=== PATIENT | male | born 1965 | race Caucasian/White ===

== ENCOUNTER 2019-10-26 05:23 | Day surgery (SDC) | payer BC, SELFPAY ==
[2019-08-20 15:05] VITALS: BMI 25.8
[2019-09-21 16:03] VITALS: BMI 25.8
[2019-10-26] VITALS (11 sets, daily range): BP systolic 122–164; BP diastolic 82–97; PULSE 73–93; RESP 16; TEMP 36.6–36.9; O2SAT 96–100; BMI 25.8
--- NOTE | 2019-10-26 06:01 | PCM.HP.STD ---
Problem List (1) Screening for intestinal cancer Status: Acute History of Present Illness Date of Admission: 10/26/19 The patient is a 53 year old M who presents for screening colonoscopy today. He has not had a previous colonoscopy. He denies personal or family history of colon polyps or cancer. He denies bright red blood per rectum or melena. Weight is been stable. He otherwise feels that he enjoys good health. Past Medical History Medical History: Medical History (Last Reviewed 08/20/19 @ 15:03 by Emily Meng) Sebaceous cyst (Acute) L72.3 Allergies No Known Allergies Allergy (Verified 09/21/19 16:03) Home Medications: Ambulatory Orders Medication Instructions Recorded NK 09/14/19 Surgical History: Surgical History (Last Reviewed 08/20/19 @ 15:04 by Emily Meng) History of ankle surgery Z98.890 Smoking Status: Current some day smoker Review of Systems Constitutional: Denies: Anorexia HEENT: Denies: Difficulty Swallowing Cardiovascular: Denies: Chest Pain Respiratory: Denies: Cough Gastrointestinal: Denies: Abdominal Pain, Melena Endocrine: Denies: Change in Body Habitus VTE Information - Inpt Only VTE Present on Admission: No Patient Problems: Active and Suspected Problems (Last Reviewed 08/20/19 @ 15:03 by Emily Meng) Screening for intestinal cancer (Acute) - Physical Exam Vitals/I&O's: Vital Signs Temp Pulse Resp BP Pulse Ox 97.8 F 93 16 151/95 H 100 10/26/19 05:49 10/26/19 05:49 10/26/19 05:49 10/26/19 05:49 10/26/19 05:49 Oxygen Delivery Method Room Air Body Mass Index (BMI) 25.8 General: Alert, Oriented x3, Cooperative, No apparent distress HEENT: Atraumatic Oral: Moist Mucosa Lungs: - - Diminished respiratory excursion. Clear apices Cardiovascular: Regular rate, Regular Rhythm Abdomen: Soft, Non Tender, Non-Distended Extremities: No Calf Tenderness Neurological: - - Cognition intact Psych/Mental Status: Normal Affect Assessment/Plan All Active Problems (Last Reviewed 08/20/19 @ 15:03 by Emily Meng) Screening for intestinal cancer (Acute) Sebaceous cyst (Acute) 53-year-old gentleman who presents for screening colonoscopy with possible biopsy or polypectomy is indicated. I have discussed the technique, benefit, risks, alternatives. He has had an opportunity to ask and have questions answered. He presents via our open access program today. Ubaldo Black M.D., F.A.C.S.
[2019-10-26] MEDS: Lactated Ringers 1,000 ML 100 ML IV (06:10)
--- NOTE | 2019-10-26 06:30 | COLBX_PTH ---
PATIENT: THOM ESPOSITO LOC: EN U#:[id number] AGE/SX: 53/M ROOM: RE10/26/[address]: Dr. Ubaldo Black MD : 1965 BED: DIS: 10/26/2019 SPEC #: [id number] RECD: 10/26/19 11:29 STATUS: COMFORT TEE #: [id number] PAT: 10/26/19 06:[address]: Ubaldo Black DEPT: SURGICAL PATHOLOGY RECD BY: Mely Galvez ENTERED: 10/26/19 11:53 SP TYPE: COLON BX OTHR DR: No Primary Care Phys Tissues: A - Cecum, NOS B - Transverse colon C - Transverse colon D - Transverse colon Procedures: Surgery Specimen Level IV HEADER OPERATION: Colonoscopy (MOD) PRE-OP DIAGNOSIS: Screening colonoscopy TISSUE SUBMITTED: A. Cecal polyp, B. Proximal transverse colon, C. Proximal transverse colon, D. Mid transverse colon polyp MICROSCOPIC DIAGNOSIS A. Cecal polyp, biopsy: Fragments of tubular adenoma. B. Proximal transverse colon polyp, biopsy: Fragments of tubular adenoma. Fragments of fecal material. C. Proximal transverse colon polypoid mucosa, biopsy: Fragments of tubular adenoma. D. Mid transverse colon polyp, biopsy: Fragments of tubular adenoma. RITA:faustino 10/29/19 MICROSCOPIC DESCRIPTION Slides are reviewed. GROSS DESCRIPTION A - Received in fixative is one container labeled with the patient's name and designated cecal polyp. The specimen consists of multiple irregular fragments of light nieves soft tissue that in aggregate measure 1 x 0.5 x 0.1 cm. The specimen is totally submitted in one cassette. B - Received in fixative is one container labeled with the patient's name and designated proximal transverse polyp. The specimen consists of multiple irregular fragments of light nieves soft tissue that in aggregate measure 1 x 0.5 x 0.1 cm. The specimen is totally submitted in one cassette. C - Received in fixative is one container labeled with the patient's name and designated proximal transverse colon polypoid mucosa. The specimen consists of multiple irregular fragments of light nieves soft tissue that in aggregate measure 1 x 0.5 x 0.1 cm. The specimen is totally submitted in one cassette. D - Received in fixative is one container labeled with the patient's name and designated mid transverse colon polyp. The specimen consists of two irregular fragments of light nieves soft tissue that in aggregate measure 0.4 x 0.3 x 0.1 cm. The specimen is totally submitted in one cassette. / RITA:faustino 10/26/19 TC:1 CPT: 98709 x4
--- NOTE | 2019-10-29 14:18 | OP.CCLET_ITS ---
10/29/2019 No Primary Care Physician Re : Colonoscopy procedure for Deirdre Starr [facility] Care Physician This procedure was performed on Saturday, October 26, 2019. My impressions and recommendations are as follows: Impressions : - Anal stricture found on digital rectal exam. - One 8 mm polyp in the cecum, removed with a cold biopsy forceps. Resected and retrieved. - One 9 mm polyp in the proximal transverse colon, removed with a cold snare. Resected and retrieved. - One 6 mm polyp in the proximal transverse colon, removed with a cold biopsy forceps. Resected and retrieved. - One 5 mm polyp in the mid transverse colon, removed with a cold biopsy forceps. Resected and retrieved. Recommendations : - Discharge patient to home. - Resume previous diet. - Continue present medications. - Repeat colonoscopy in 3 years for surveillance based on pathology results. - Telephone my office for pathology results in 1 week. My findings are described in the full procedure note, which is enclosed. If I can be of further assistance, please feel free to contact me at Doctor phone number(s): Work: . Sincerely, Ubaldo Black MD 10/26/2019 6:55:19 AM This report has been signed electronically.
--- NOTE | 2019-10-29 14:18 | OP.COLON_ITS ---
Patient Name: Deirdre Starr Procedure Date: 10/26/2019 6:09 AM Date of : 1965 Age: 53 Procedure: Colonoscopy Indications: Screening for colorectal malignant neoplasm Providers: Ubaldo Black MD Referring MD: Ubaldo Black MD Medicines: Midazolam 4.5 mg IV, Meperidine 100 mg IV Patient Profile: Last Colonoscopy: none. The patient's first colonoscopy is today. Complications: No immediate complications. Procedure: Pre-Anesthesia Assessment: - Prior to the procedure, a History and Physical was performed, and patient medications and allergies were reviewed. The patient's tolerance of previous anesthesia was also reviewed. The risks and benefits of the procedure and the sedation options and risks were discussed with the patient. All questions were answered, and informed consent was obtained. Prior Anticoagulants: The patient has taken no previous anticoagulant or antiplatelet agents. ASA Grade Assessment: II - A patient with mild systemic disease. After reviewing the risks and benefits, the patient was deemed in satisfactory condition to undergo the procedure. After I obtained informed consent, the scope was passed under direct vision. Throughout the procedure, the patient's blood pressure, pulse, and oxygen saturations were monitored continuously. The Colonoscope was introduced through the anus and advanced to the cecum, identified by appendiceal orifice and ileocecal valve. The colonoscopy was performed without difficulty. The patient tolerated the procedure well. The quality of the bowel preparation was good. The ileocecal valve was photographed. Moderate Sedation: Moderate (conscious) sedation was personally administered by the endoscopist. The following parameters were monitored: oxygen saturation, heart rate, blood pressure, and response to care. Total physician intraservice time was 16 minutes. Scope In: 6:33:55 AM Scope Withdrawal Time 0 hours 12 minutes 59 seconds Scope Out: 6:50:07 AM Total Procedure Duration Time 0 hours 16 minutes 12 seconds Findings: The digital rectal exam findings include anal stricture. A 8 mm polyp was found in the cecum. The polyp was sessile. The polyp was removed with a cold biopsy forceps. Resection and retrieval were complete. A 9 mm polyp was found in the proximal transverse colon. The polyp was sessile. The polyp was removed with a cold snare. Resection and retrieval were complete. A 6 mm polyp was found in the proximal transverse colon. The polyp was sessile. The polyp was removed with a cold biopsy forceps. Resection and retrieval were complete. A 5 mm polyp was found in the mid transverse colon. The polyp was sessile. The polyp was removed with a cold biopsy forceps. Resection and retrieval were complete. Impression: - Anal stricture found on digital rectal exam. - One 8 mm polyp in the cecum, removed with a cold biopsy forceps. Resected and retrieved. - One 9 mm polyp in the proximal transverse colon, removed with a cold snare. Resected and retrieved. - One 6 mm polyp in the proximal transverse colon, removed with a cold biopsy forceps. Resected and retrieved. - One 5 mm polyp in the mid transverse colon, removed with a cold biopsy forceps. Resected and retrieved. Recommendation: - Discharge patient to home. - Resume previous diet. - Continue present medications. - Repeat colonoscopy in 3 years for surveillance based on pathology results. - Telephone my office for pathology results in 1 week. Procedure Code(s): --- Professional --- 98093, Colonoscopy, flexible; with removal of tumor(s), polyp(s), or other lesion(s) by snare technique 14195, 59, Colonoscopy, flexible; with biopsy, single or multiple 35511, 59, Moderate sedation services provided by the same physician or other qualified health daycare provider performing the diagnostic or therapeutic service that the sedation supports, requiring the presence of an independent trained observer to assist in the monitoring of the patient's level of consciousness and physiological status; initial 15 minutes of intraservice time, patient age 5 years or older Diagnosis Code(s): --- Professional --- Z12.11, Encounter for screening for malignant neoplasm of colon K62.4, Stenosis of anus and rectum D12.0, Benign neoplasm of cecum D12.3, Benign neoplasm of transverse colon (hepatic flexure or splenic flexure) CPT copyright 2017 [employer]. All rights reserved. The codes documented in this report are preliminary and upon reduction furnace operator review may be revised to meet current compliance requirements. Ubaldo Black MD 10/26/2019 6:55:19 AM This report has been signed electronically. Number of Addenda: 0 Note Initiated On: 10/26/2019 6:09 AM
== END 2019-10-26 07:29 | disposition home or self-care (01) ==
LOC: EN 05:23 → AC 05:25
PROVIDERS: Referring Provider Surgery; Visit Provider Surgery
PROC: 0DJD8ZZ Inspection of Lower Intestinal Tract, Via Natural or Artificial Opening Endoscopic (ICD-10-PCS; CPT 45378; principal; 2019-10-26 06:25)
DX: Z12.11 Encounter for screening for malignant neoplasm of colon (principal); D12.0 Benign neoplasm of cecum; D12.3 Benign neoplasm of transverse colon; K62.4 Stenosis of anus and rectum; F17.200 Nicotine dependence, unspecified, uncomplicated
CPT/HCPCS: 45380; 45385; 88305; 99152; 99153; J7120

== ENCOUNTER → 2022-11-19 | Outpatient (CLI) | payer BC, SELFPAY ==
[2022-11-19 08:26] LABS: Absolute Lymphocyte Count 1.09 X10^3/uL (0.83-4.51); Absolute Neutrophil Count 2.9 X10^3/uL (2.0-7.7); Basophil# 0.04 X10^3/uL; Basophil% 0.8 % (0-1); Eosinophil# 0.17 X10^3/uL; Eosinophils% 3.4 % (0-5); Hemoglobin 15.4 g/dL (13.0-16.5); Lymphocyte # 1.09 X10^3/ul (0.83-4.51); Lymphocyte % 22.1 % (19-41); Mean Corp Hgb Conc 34.2 g/dL (32-36); Mean Corpuscular Hgb 33.2 pg (27.0-32.0); Mean Platelet Vol. 9.7 fl (6.2-12.0); Monocyte% 14.2 % (0-10); NRBC Flagged by Analyzer 0 % (0-5); Neutrophil # 2.92 X10^3/uL (2.7-7.7); Neutrophil % 59.1 % (47-70); Platelet Count 216 K/mm3 (150-450); RBC Distribution Width CV 11.3 % (11.6-14.6); RBC Distribution Width SD 40.5 fl (35.1-43.9); Red Blood Count 4.64 M/mm3 (4.6-6.2); White Blood Count 4.9 K/mm3 (4.4-11.0)
[2022-11-19 08:51] LABS: ALB/GLOB Ratio 1.4 RATIO (0.9-2.4); AST(SGOT) 34 U/L (15-37); Alanine Aminotransfer ALT/SGPT 55 U/L (16-61); Albumin, Serum 4.1 g/dL (3.2-5.0); Alkaline Phosphatase 50 U/L (45-117); Anion Gap 5 (5-15); BUN 9 mg/dL (7-18); BUN/Creat Ratio 9.9 RATIO (10-20); Chloride 100 mmol/L (98-107); Cholesterol 200 mg/dL (200); Creatinine, Serum 0.91 mg/dL (0.70-1.30); EST Glomerular Filtration Rate 91 mL/min (>60); Est Glom Filt Rate - Afr Amer 110 mL/min (>60); Glucose 116 mg/dL (74-106); High Density Lipoprotein 92 mg/dL; PSA,Total - Annual Screen 1.85 ng/mL (0.00-4.00); Potassium 4.6 mmol/L (3.5-5.1); Protein, Total 7.1 g/dL (6.4-8.2); Sodium Level 134 mmol/L (136-145); Triglycerides 49 mg/dL; Very Low Density Lipoprotein 10 mg/dL (5-40)
== END | disposition home or self-care (01) ==
PROVIDERS: PCP Internal Medicine; Visit Provider Internal Medicine
DX: Z00.00 Encounter for general adult medical examination without abnormal findings (principal); Z76.89 Persons encountering health services in other specified circumstances
CPT/HCPCS: 36415; 80053; 80061; 82306; 84153; 85025; G0103

== ENCOUNTER 2022-11-25 06:53 | Outpatient (CLI) | payer BC, SELFPAY ==
[2022-11-25 08:43] LABS: Insulin 9.9 mU/L (2.6-37.6)
== END 2022-11-25 23:59 | disposition home or self-care (01) ==
PROVIDERS: PCP Internal Medicine; Referring Provider Internal Medicine; Visit Provider Internal Medicine
DX: E88.81 Metabolic syndrome and other insulin resistance (principal)
CPT/HCPCS: 36415; 83525

== ENCOUNTER 2023-01-21 06:05 | Day surgery (SDC) | payer BC, SELFPAY ==
[2023-01-21] VITALS (9 sets, daily range): BP systolic 111–170; BP diastolic 84–101; PULSE 71–84; RESP 16–18; TEMP 36.1–37.1; O2SAT 95–100; BMI 26.0
--- NOTE | 2023-01-21 06:09 | HP.PCM_ITS ---
History and Physical Date of Admission: 01/21/23 Allergies No Known Allergies Allergy (Verified 11/05/22 07:46) Medications NK? 09/14/19 [History Confirmed 11/05/22] PFSH Medical History?(Updated 11/05/22 @ 05:[address] Ubaldo Black MD) Back problem Hearing problem Sebaceous cyst Surgical History? H/O colonoscopy History of ankle surgery Family History? Mother Breast cancerSister Thyroid disorderGrandfather Heart diseaseFather CVA (cerebral vascular accident) Social History? adopted:? No household members:? spouse housing:? house number of children:? 2 current occupational status:? 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 Yes leisure activities:? hunting and fishing history of recent travel:? No sexually active:? Yes Smoking Status:? Current some day smoker Smokeless tobacco user:? chewing tobacco how long ago did patient quit smoking:? 2 years ago smoking , occ cigar , usses chewing tabacoo alcohol intake:? current alcohol intake frequency: 0-2 drinks per day details:? 20-30 a week substance use type:? does not use well-balanced diet:? about half the time caffeine:? Yes eating out:? rarely or never during the past year weight has:? increased > 10 lbs what type of physical activity do you participate in:? none melanie/religious:? Restoration seatbelt use:? always do you feel safe at home:? Yes HPI HPI HPI: 56-year-old gentleman has received a recall letter for a colonoscopy.? On October 26, 2019 I performed a colonoscopy as screening for him.? That was performed with moderate conscious sedation.? 4 polyps were removed from the cecum and proximal transverse colon and mid transverse colon.? They were all tubular adenomas.? Bowel preparation at that time was felt to be good.? Follow- up exam in 3 years recommended to the number of polyps identified.? He has no family history of colon cancer.? He has had no abdominal pain or bright red blood per rectum or melena.? He has had a very slight weight increase no unexpected loss.? No history of DVT. ROS General General: No weight change, appetite, fatigue, colon cancer, breast cancer or weakness HEENT HEENT: No difficulty swallowing, eye injury, eye surgery, swollen glands or hoarseness Endo Endocrine: No thyroid disease, diabetes mellitus, thyroid cancer, Hair loss, heat intolerance or cold intolerance Skin Skin: No rash or changing moles Musc Musculoskeletal: No back problems, arthritis, rheumatoid arthritis, gout or joint pain Cardio Cardiovascular: No murmur, pacemaker, heart disease, atrial fibrillation, high blood pressure, heart attack, heart stent, palpitations, shortness of breat with exertion or chest pain Psych Psychiatric: No depression, anxiety or hearing voices Resp Respiratory: No shortness of breath, No sleep apnea, No cough, No COPD, No asthma, No emphysema and No wheezing Gastro Gastrointestinal: No abdominal pain, No nausea or vomiting, No diarrhea, No constipation, No blood in stool, No acid reflux, No hemorrhoids, No ulcers, No gallbladder problem and No black,tarry stools Kiko Hematologic: No blood thinners, No blood disorders, No bleeding, No anemia and No blood clots Neuro Neurologic: No system reviewed and no additional complaints, except as documented, No as per HPI, No abnormal gait, No abnormal hearing, No abnormal movements, No abnormal speech, No behavioral changes, No burning sensations, No confusion, No convulsions, No disequilibrium, No dizziness, No localized weakness, No frequent falls, No headache(s), No lack of coordination, No loss of vision, No memory loss, No numbness, No other visual disturbances, No radicular pain, No restless legs, No sensory deficit, No syncope, No tingling, No tremor(s), No weakness and No other Exam Const General: cooperative, comfortable and no acute distress [facility] Head: normal to inspection Eyes General: appearance normal, both eyes and all related structures Neck Neck: normal visual inspection Chest Chest palpation & inspection: normal inspection of the chest Resp Effort & Inspection: normal respiratory effort Auscultation: clear to auscultation bilaterally Cardio Rate: regular rate Rhythm: regular rhythm GI Palpation: soft and no hepatosplenomegaly Skin General: no rashes or lesions noted Neuro General: patient alert, patient awake and patient oriented x3 Extrem General: no calf tenderness Psych Appearance: grossly normal Assessment and Plan Assessment and Plan (1) Personal history of colonic polyps: ?Status:?Acute ?Plan: I recommended the patient a surveillance colonoscopy with possible biopsy or polypectomy as indicated.? He is aware of the technique, benefit, risk, alternatives.? He did well with his previous bowel prep and MOD anesthesia.? We will schedule and proceed at his discretion. Copy: Dr. Judith Black M.D., F.A.C.S. I have reviewed the patient's history and physical with him today. There have been no changes. He is again had an opportunity to ask and have questions answered. He presents for surveillance colonoscopy because of a previous history of colon polyps. We will proceed as noted. Ubaldo Black M.D., F.A.C.S.
[2023-01-21] MEDS: Lactated Ringers 1,000 ML 15 ML IV (06:31)
--- NOTE | 2023-01-21 07:00 | COLBX_PTH ---
PATIENT: THOM ESPOSITO LOC: [facility] U#:[id number] AGE/SX: 57/M ROOM: RE01/21/[address]: Dr. Ubaldo Black MD : 1965 BED: DIS: 01/21/2023 SPEC #: [id number] RECD: 01/21/23 12:15 STATUS: COMFORT TEE #: [id number] PAT: 01/21/23 07:[address]: Ubaldo Black DEPT: SURGICAL PATHOLOGY RECD BY: Elzbieta Whyte ENTERED: 01/21/23 15:22 SP TYPE: COLON BX [place] DR: Dr. Judith Gates MD Tissues: A - Ascending colon B - Transverse colon C - Transverse colon D - Descending colon Procedures: Surgery Specimen Level IV HEADER OPERATION: Colonoscopy (MOD) PRE-OP DIAGNOSIS: History of colonic polyps TISSUE SUBMITTED: A ? Proximal ascending colon polyp, B ? Proximal transverse colon polyp, C ? Mid transverse colon polyp, D ? Descending colon polyp MICROSCOPIC DIAGNOSIS A. Proximal ascending colon polyp, biopsy: Fragments of tubular adenoma. B. Proximal transverse colon polyp, biopsy: Fragments of tubular adenoma. C. Mid transverse colon polyp, biopsy: Tubular adenoma. D. Descending colon polyp, biopsy: Polypoid fragment of benign colonic mucosa. See comment. AM:faustino 01/24/2023 COMMENT D. Neither hyperplastic nor adenomatous change is identified. Clinical correlation is suggested. MICROSCOPIC DESCRIPTION Slides are reviewed. GROSS DESCRIPTION A - Received in fixative is one container labeled with the patient's name and designated proximal ascending colon polyp. The specimen consists of multiple irregular fragments of light nieves soft tissue that in aggregate measure 1.5 x 0.5 x 0.1 cm. The specimen is totally submitted in one cassette. B - Received in fixative is one container labeled with the patient's name and designated proximal transverse colon polyp. The specimen consists of two irregular fragments of light nieves soft tissue that in aggregate measure 0.8 x 0.4 x 0.1 cm. The specimen is totally submitted in one cassette. C - Received in fixative is one container labeled with the patient's name and designated mid transverse colon polyp. The specimen consists of one irregular fragment of light nieves soft tissue that measures 0.5 x 0.5 x 0.1 cm. The specimen is totally submitted in one cassette. D - Received in fixative is one container labeled with the patient's name and designated descending colon polyp. The specimen consists of one irregular fragment of light nieves soft tissue that measures 0.4 x 0.4 x 0.1 cm. The specimen is totally submitted in one cassette. / RITA:faustino 01/21/2023 TC:5 CPT: 60586 x4
[2023-01-21] MEDS: Midazolam 5 MG/ML Syringe (07:05)
[2023-01-21] MEDS: DiphenhydrAMINE 50 MG/ML Syringe (07:06)
--- NOTE | 2023-01-21 07:30 | OP.COLON_ITS ---
Patient Name: Deirdre Starr Procedure Date: 01/21/2023 6:54 AM Date of : 1965 Age: 57 Procedure: Colonoscopy Indications: High risk colon cancer surveillance: Personal history of colonic polyps Providers: Ubaldo Black MD Medicines: Midazolam 4.5 mg IV, Meperidine 100 mg IV, Diphenhydramine 12.5 mg IV Patient Profile: Last Colonoscopy: 3 years ago. Complications: No immediate complications. Procedure: Pre-Anesthesia Assessment: - Prior to the procedure, a History and Physical was performed, and patient medications and allergies were reviewed. The patient's tolerance of previous anesthesia was also reviewed. The risks and benefits of the procedure and the sedation options and risks were discussed with the patient. All questions were answered, and informed consent was obtained. Prior Anticoagulants: The patient has taken no previous anticoagulant or antiplatelet agents. ASA Grade Assessment: II - A patient with mild systemic disease. After reviewing the risks and benefits, the patient was deemed in satisfactory condition to undergo the procedure. After I obtained informed consent, the scope was passed under direct vision. Throughout the procedure, the patient's blood pressure, pulse, and oxygen saturations were monitored continuously. The Colonoscope was introduced through the anus and advanced to the cecum, identified by appendiceal orifice and ileocecal valve. The colonoscopy was performed without difficulty. The patient tolerated the procedure well. The quality of the bowel preparation was good. The ileocecal valve and the appendiceal orifice were photographed. Moderate Sedation: Moderate (conscious) sedation was personally administered by the endoscopist. The following parameters were monitored: oxygen saturation, heart rate, blood pressure, and response to care. Total physician intraservice time was 15 minutes. Scope In: 7:06:27 AM Scope Withdrawal Time 0 hours 12 minutes 30 seconds Scope Out: 7:22:22 AM Total Procedure Duration Time 0 hours 15 minutes 55 seconds Findings: Hemorrhoids were found on perianal exam. The digital rectal exam was normal. Pertinent negatives include normal prostate (size, shape, and consistency). A 6 mm polyp was found in the proximal ascending colon. The polyp was sessile. The polyp was removed with a hot snare. Resection and retrieval were complete. A 6 mm polyp was found in the proximal transverse colon. The polyp was sessile. The polyp was removed with a hot snare. Resection and retrieval were complete. A 4 mm polyp was found in the mid transverse colon. The polyp was sessile. The polyp was removed with a cold biopsy forceps. Resection and retrieval were complete. A 3 mm polyp was found in the mid descending colon. The polyp was sessile. The polyp was removed with a cold biopsy forceps. Resection and retrieval were complete. Scattered diverticula were found in the sigmoid colon. Impression: - Hemorrhoids found on perianal exam. - One 6 mm polyp in the proximal ascending colon, removed with a hot snare. Resected and retrieved. - One 6 mm polyp in the proximal transverse colon, removed with a hot snare. Resected and retrieved. - One 4 mm polyp in the mid transverse colon, removed with a cold biopsy forceps. Resected and retrieved. - One 3 mm polyp in the mid descending colon, removed with a cold biopsy forceps. Resected and retrieved. - Diverticulosis in the sigmoid colon. Recommendation: - Discharge patient to home. - Resume previous diet. - Continue present medications. - Repeat colonoscopy in 3 years for surveillance based on pathology results. - Telephone my office for pathology results in 1 week. Procedure Code(s): --- Professional --- 95933, Colonoscopy, flexible; with removal of tumor(s), polyp(s), or other lesion(s) by snare technique 04995, 59, Colonoscopy, flexible; with biopsy, single or multiple 50226, 59, Moderate sedation services provided by the same physician or other qualified health career resource technician performing the diagnostic or therapeutic service that the sedation supports, requiring the presence of an independent trained observer to assist in the monitoring of the patient's level of consciousness and physiological status; initial 15 minutes of intraservice time, patient age 5 years or older Diagnosis Code(s): --- Professional --- Z86.010, Personal history of colonic polyps K64.9, Unspecified hemorrhoids D12.2, Benign neoplasm of ascending colon D12.3, Benign neoplasm of transverse colon (hepatic flexure or splenic flexure) D12.4, Benign neoplasm of descending colon K57.30, Diverticulosis of large intestine without perforation or abscess without bleeding CPT copyright 2017 [employer]. All rights reserved. The codes documented in this report are preliminary and upon application spec review may be revised to meet current compliance requirements. Ubaldo Black MD 01/21/2023 7:29:32 AM This report has been signed electronically. Number of Addenda: 0 Note Initiated On: 01/21/2023 6:54 AM
--- NOTE | 2023-01-21 07:30 | OP.CCLET_ITS ---
01/21/2023 Judith Gates [facility] [address] [place] [address] Re : Colonoscopy procedure for Deirdre Starr Dear Dr. Gates This procedure was performed on Saturday, January 21, 2023. My impressions and recommendations are as follows: Impressions : - Hemorrhoids found on perianal exam. - One 6 mm polyp in the proximal ascending colon, removed with a hot snare. Resected and retrieved. - One 6 mm polyp in the proximal transverse colon, removed with a hot snare. Resected and retrieved. - One 4 mm polyp in the mid transverse colon, removed with a cold biopsy forceps. Resected and retrieved. - One 3 mm polyp in the mid descending colon, removed with a cold biopsy forceps. Resected and retrieved. - Diverticulosis in the sigmoid colon. Recommendations : - Discharge patient to home. - Resume previous diet. - Continue present medications. - Repeat colonoscopy in 3 years for surveillance based on pathology results. - Telephone my office for pathology results in 1 week. My findings are described in the full procedure note, which is enclosed. If I can be of further assistance, please feel free to contact me at Doctor phone number(s): Work: . Sincerely, Ubaldo Black MD 01/21/2023 7:29:32 AM This report has been signed electronically.
== END 2023-01-21 08:00 | disposition home or self-care (01) ==
LOC: EN 06:09 → AC 06:09
PROVIDERS: PCP Internal Medicine; Referring Provider Internal Medicine; Visit Provider Surgery
PROC: 0DJD8ZZ Inspection of Lower Intestinal Tract, Via Natural or Artificial Opening Endoscopic (ICD-10-PCS; CPT 45378; principal; 2023-01-21 06:55)
DX: Z12.11 Encounter for screening for malignant neoplasm of colon (principal); Z86.010 Personal history of colon polyps; K57.30 Diverticulosis of large intestine without perforation or abscess without bleeding; F17.200 Nicotine dependence, unspecified, uncomplicated; D12.2 Benign neoplasm of ascending colon; D12.3 Benign neoplasm of transverse colon
CPT/HCPCS: 45385; 45380; 88305; 99152; 99153; J7120